=== PATIENT | male | born 1980 | race Caucasian/White ===

== ENCOUNTER 2018-03-11 10:09 | Emergency (ER) | payer MEDICAID ==
[~2018-03-11] VITALS: Ht 175.3 cm; Wt 72.5 kg
[~2018-03-11 10:09] MED LIST: CARB100S PO; CARB200 PO; SERO50TA PO
[2018-03-11 10:25] VITALS: BP 154/77; PULSE 87; RESP 20; TEMP 98.3; O2SAT 97
[2018-03-11] MEDS ORDERED: ONDANSETRON ODT 4 MG TAB PO ONE (11:15)
[2018-03-11] MEDS ORDERED: LORazepam 2 MG/ML VIAL IM PRN ×2 (11:15)
[2018-03-11] MEDS ORDERED: LORazepam 1 MG TAB PO PRN (11:15)
[2018-03-11] MEDS ORDERED: LORazepam 2 MG TAB PO PRN (11:15)
[2018-03-11] MEDS ORDERED: FLUMAZENIL 0.5 MG/5 ML VIAL IV PUSH PRN (11:15)
[2018-03-11] MEDS ORDERED: LORazepam 2 MG/ML VIAL IV PUSH PRN ×2 (11:15)
--- NOTE | 2018-03-11 12:19 | PD ---
HPI Chief Complaint: Medical Clearance Time Seen by Provider: 11:06 Travel History International Travel<30 days: No Contact w/Intl Traveler<30days: No Traveled to known affect area: No History of Present Illness HPI 37-year-old male presents to the emergency department with request for detox from alcohol and cocaine. He said he went to [facility] but they did not have any beds available. He is also reporting suicidal ideations. He says they are consistent. He does not have a plan, but states that he "cannot explain" his thoughts. He says he feels hopeless. Denies homicidal ideations. Denies hallucinations. Reports feeling nauseated and has had decreased appetite. Says he has been drinking alcohol for many years. Says he drinks beer and liquor. Last drink yesterday. Last used cocaine yesterday. Aggravated with alcohol and illicit drug abuse. No known relieving factors. Symptoms are moderate to severe in severity. Duration chronic. Onset unknown. No known allergies. No primary care provider. Denies significant past medical history. Has no other medical complaints. No other modifying factors or associated signs and symptoms. PFSH Past Medical History Medical History: Denies Significant Hx Past Surgical History Surgical History: No Previous Surgery Social History Alcohol Use: Yes Tobacco Use: Yes Substance Use: No Allergies-Medications (Allergen,Severity, Reaction): Coded Allergies: No Known Allergies (Unverified , 03/11/18) Reported Meds & Prescriptions Reported Meds & Active Scripts Active No Active Prescriptions or Reported Medications Review of Systems Except as stated in HPI: all other systems reviewed are Neg Physical Exam Narrative GENERAL: Well-nourished, well-developed patient, in no acute distress SKIN: Warm and dry. HEAD: Atraumatic. Normocephalic. EYES: Pupils equal and round. ENT: Mucosa pink and moist. NECK: Supple. Trachea midline. CARDIOVASCULAR: Regular rate and rhythm. No murmur appreciated. RESPIRATORY: No accessory muscle use. Clear to auscultation. Breath sounds equal bilaterally. GASTROINTESTINAL: Abdomen soft, non-tender, nondistended. Hepatic and splenic margins not palpable. Bowel sounds are active 4 quadrants. MUSCULOSKELETAL: No obvious deformities. No clubbing. No cyanosis. No edema. NEUROLOGICAL: Awake and alert. Oriented 3. No obvious cranial nerve deficits. Motor grossly within normal limits. Normal speech. Moves all extremities. 5/5 strength to all extremities. PSYCHIATRIC: No delusional thought processes. No hallucinations. Data Data Last Documented VS Vital Signs Date Time Temp Pulse Resp B/P (MAP) Pulse Ox O2 Delivery O2 Flow Rate FiO2 03/11/18 10:25 98.3 87 20 154/77 (102) 97 Orders Orders Complete Blood Count With Diff (03/11/18 11:15) Comprehensive Metabolic Panel (03/11/18 11:15) Thyroid Stimulating Hormone (03/11/18 11:15) Psych Screen (03/11/18 11:15) Drug Screen, Random Urine (03/11/18 11:15) Alcohol (Ethanol) (03/11/18 11:15) Salicylates (Aspirin) (03/11/18 11:15) Tylenol (Acetaminophen) (03/11/18 11:15) Ondansetron Odt (Zofran Odt) (03/11/18 11:15) Alcohol Withdrawal Asmt-Ciwa ONCE (03/11/18 11:15) Flumazenil Inj (Romazicon Inj) (03/11/18 11:15) Lorazepam (Ativan) (03/11/18 11:15) Lorazepam Inj (Ativan Inj) (03/11/18 11:15) Lorazepam (Ativan) (03/11/18 11:15) Lorazepam Inj (Ativan Inj) (03/11/18 11:15) Lorazepam Inj (Ativan Inj) (03/11/18 11:15) Lorazepam Inj (Ativan Inj) (03/11/18 11:15) MDM Medical Decision Making Medical Screen Exam Complete: Yes Emergency Medical Condition: Yes Medical Record Reviewed: Yes Differential Diagnosis Suicidal ideation, alcohol abuse, cocaine abuse Narrative Course 37-year-old male presents requesting detox from alcohol and cocaine. He is also reporting suicidal ideations that are consistent. Patient appears and is acting clinically sober at this time. He says he last used alcohol and cocaine yesterday. With his report of suicidal ideation and being clinically sober I will initiate a Thomas act, even though he does not have a plan. When asked the patient if he was a threat to himself he said he feels he is because of his consistent thoughts of wanting to commit suicide and feeling hopeless. Patient placed under a Thomas act. Physical examination and vital signs are essentially unremarkable. Patient has no medical complaints to report. Psych screen has been ordered. If the laboratory results are unremarkable, the patient will be medically cleared for psychiatric evaluation and disposition. Diagnosis Primary Impression: Encounter for psychological evaluation Additional Impressions: Alcohol abuse Cocaine abuse Scripts No Active Prescriptions or Reported Meds Condition: Stable Jyoti Pelaez March 11, 2018 12:19
[2018-03-11 12:41] LABS: AUTOMATED NEUTROPHIL # 2.7 TH/MM3 (1.8-7.7); BASOPHIL % 0.3 % (0.0-2.0); EOSINOPHIL # 0.1 TH/MM3 (0-0.4); EOSINOPHIL % 1.9 % (0.0-4.0); HEMATOCRIT 42.1 % (39.0-51.0); HEMOGLOBIN 14.3 GM/DL (13.0-17.0); LYMPH % 31.8 % (9.0-44.0); LYMPHOCYTE # 1.7 TH/MM3 (1.0-4.8); MEAN CELL VOLUME 94.6 FL (80.0-100.0); MEAN CORPUSCULAR HEMOGLOBIN 32.1 PG (27.0-34.0); MEAN CORPUSCULAR HGB CONC 33.9 % (32.0-36.0); MONO % 15.5 % (0.0-8.0); MONOCYTE # 0.8 TH/MM3 (0-0.9); NEUT % 50.5 % (16.0-70.0); PLATELET COUNT 249 TH/MM3 (150-450); RED BLOOD COUNT 4.45 MIL/MM3 (4.50-5.90); RED CELL DISTRIBUTION WIDTH 13.5 % (11.6-17.2); WHITE BLOOD COUNT 5.4 TH/MM3 (4.0-11.0)
[2018-03-11 12:57] LABS: ALT (GPT) 47 U/L (12-78)
[2018-03-11 13:07] LABS: ALKALINE PHOSPHATASE 72 U/L (45-117); TOTAL BILIRUBIN ADULT 0.3 MG/DL (0.2-1.0); TOTAL PROTEIN 7.1 GM/DL (6.4-8.2)
[2018-03-11 13:09] LABS: ALBUMIN 3.7 GM/DL (3.4-5.0); AST (GOT) 24 U/L (15-37); BICARBONATE 22.7 MEQ/L (21.0-32.0); BLOOD UREA NITROGEN 22 MG/DL (7-18); CALCIUM 8.8 MG/DL (8.5-10.1); CHLORIDE 105 MEQ/L (98-107); CREATININE 0.91 MG/DL (0.60-1.30); GLOMERULAR FILTRATION RATE 94 ML/MIN (>89); GLUCOSE,RANDOM 92 MG/DL (74-106); SODIUM (NA) 139 MEQ/L (136-145)
[2018-03-11 13:16] LABS: ACETAMINOPHEN LESS THAN 2.0 MCG/ML (10.0-30.0)
[2018-03-11 15:01] VITALS: BP 145/63; PULSE 98; RESP 18; O2SAT 99
[2018-03-11 18:30] VITALS: BP 162/93; PULSE 98; RESP 20
[2018-03-11 22:00] VITALS: BP 142/80; PULSE 78; RESP 18; O2SAT 97
[2018-03-12 02:29] VITALS: BP 129/82; PULSE 68; RESP 18; O2SAT 98
[2018-03-12 06:43] VITALS: BP 134/70; PULSE 69; RESP 17; O2SAT 100
--- NOTE | 2018-03-12 10:03 | PD ---
History of Present Illness Chief Complaint: Medical Clearance Time Seen by Provider: 09:40 Travel History International Travel<30 Days: No Contact w/Intl Traveler<30days: No Known affected area: No Legal Status Legal Status: Thomas Act Thomas Act Signed By: ED PHYSICIAN VIRAL History of Present Illness: History of Present Illness HPI 37-year-old, single male with history of cocaine use disorder, alcohol use disorder who presents to the emergency department on a voluntary status with request for detox from alcohol and cocaine. He said he went to [facility] but they did not have any beds available. He was placed under an involuntary status by ED provider after he reported to her that he had suicidal ideation that were consistent, no plan, feeling hopeless. EMR is reviewed. Positive for cocaine undetectable alcohol level. He was evaluated in 2003 after he relapsed, after unknown amount of sobriety from alcohol and crack cocaine while at a sober living facility. Patient was monitored in secure environment over extended amount of time with no suicidality. Patient is seen with sil Navarro. He is alert, oriented, engaging, patient does not present any evidence of unstable mental illness. He does not present any suicidal or homicidal ideation, intent or plan. Patient is requesting detox and wanting [facility] to transport him there via ambulance. States " My buddies told me to come to the hospital and that you guys will get me there. They know how is done, lady". When he is advised that we will not be transporting him there and that he can present himself to for detox on his own he becomes angry with this rfp writer. He is rather entitled. Significant antisocial traits are evident during his evaluation. PFSH Past Medical History Medical History: Denies Significant Hx Past Surgical History Surgical History: No Previous Surgery Psychiatric History Psychiatric History Hx Psychiatric Treatment: Denies any. No previous suicide attempts. History of Inpatient Treatment: No Guns or firearms in home: No Social History Born in [place]. Patient released from incarceration on February 09, 2018 after serving 22 months. Hx Alcohol Use: Yes Hx Tobacco Use: Yes Hx Substance Use: Yes (cocaine) Substance Use Type: Alcohol, Cocaine Hx of Substance Use Treatment: No Family Psychiatric History Negative Allergies-Medications (Allergen,Severity, Reaction): Coded Allergies: No Known Allergies (Unverified , 03/11/18) Reported Meds & Prescriptions Reported Meds & Active Scripts Active No Active Prescriptions or Reported Medications Review of Systems Psychiatric: DENIES: Anxiety, Confusion, Mood changes, Depression, Hallucinations, Agitation, Suicidal Ideation, Homicidal Ideation, Delusions Except as stated in HPI: all other systems reviewed are Neg Mental Status Examination Appearance: Appropriate ([facility]. ) Consciousness: Alert Orientation: x4 Motor Activity: Normal gait Speech: Unremarkable Language: Adequate Fund of Knowledge: Adequate Attention and Concentration: Adequate Memory: Unremarkable Mood: Appropriate Affect: Appropriate Thought Process & Associations: Intact, Logical, Goal directed Thought Content: Appropriate Hallucination Type: None Delusion Type: None Suicidal Ideation: No Suicidal Plan: No Suicidal Intention: No Homicidal Ideation: No Homicidal Plan: No Homicidal Intention: No Insight: Fair Judgment: Adequate MDM Medical Decision Making Medical Record Reviewed: Yes Assessment/Plan History of Present Illness HPI 37-year-old male with history of cocaine use disorder and alcohol use disorder who presents to the emergency department on a voluntary basis with request for detox from alcohol and cocaine. He said he went to [facility] but they did not have any beds available. He reported to ED provider that he was having suicidal ideations as well as feeling hopeless and was placed under an involuntary status. The patient was monitor for extended period of time and presented no evidence of any unstable mental illness, no suicidality, no behavioral dysregulation. He is asking for detox services for his use of cocaine. He demands that at the hospital make arrangements to take him to [facility] or another detox facility. The correctional case records supervisor informs them that he will call [facility] for availability of bed but that it would be up to him to present himself there. He becomes critical of this provider and demanding for transportation to [facility]. The patient does not present criteria to remain under a Thomas act. He is wanting substance abuse treatment including detox. He is future oriented. I have advised him that [facility] does not provide substance abuse treatment and does not provide detox. BA is lifted. Psychiatric clear for discharge. Orders Orders Complete Blood Count With Diff (03/11/18 11:15) Comprehensive Metabolic Panel (03/11/18 11:15) Thyroid Stimulating Hormone (03/11/18 11:15) Psych Screen (03/11/18 11:15) Drug Screen, Random Urine (03/11/18 11:15) Alcohol (Ethanol) (03/11/18 11:15) Salicylates (Aspirin) (03/11/18 11:15) Tylenol (Acetaminophen) (03/11/18 11:15) Ondansetron Odt (Zofran Odt) (03/11/18 11:15) Alcohol Withdrawal Asmt-Ciwa ONCE (03/11/18 11:15) Flumazenil Inj (Romazicon Inj) (03/11/18 11:15) Lorazepam (Ativan) (03/11/18 11:15) Lorazepam Inj (Ativan Inj) (03/11/18 11:15) Lorazepam (Ativan) (03/11/18 11:15) Lorazepam Inj (Ativan Inj) (03/11/18 11:15) Lorazepam Inj (Ativan Inj) (03/11/18 11:15) Lorazepam Inj (Ativan Inj) (03/11/18 11:15) Diet Regular Basic (03/11/18 Dinner) Diet Regular Basic (03/12/18 Breakfast) Results Vital Signs Date Time Temp Pulse Resp B/P (MAP) Pulse Ox O2 Delivery O2 Flow Rate FiO2 03/12/18 06:43 69 17 134/70 (91) 100 Room Air 03/12/18 02:29 68 18 129/82 (98) 98 Room Air 03/11/18 22:00 78 18 142/80 (100) 97 Room Air 03/11/18 18:30 98 20 162/93 (116) Room Air 03/11/18 15:01 98 18 145/63 (90) 99 Room Air 03/11/18 10:25 98.3 87 20 154/77 (102) 97 Laboratory Tests Test 03/11/18 12:30 03/11/18 21:50 White Blood Count 5.4 Red Blood Count 4.45 Hemoglobin 14.3 Hematocrit 42.1 Mean Corpuscular Volume 94.6 Mean Corpuscular Hemoglobin 32.1 Mean Corpuscular Hemoglobin Concent 33.9 Red Cell Distribution Width 13.5 Platelet Count 249 Mean Platelet Volume 8.0 Neutrophils (%) (Auto) 50.5 Lymphocytes (%) (Auto) 31.8 Monocytes (%) (Auto) 15.5 Eosinophils (%) (Auto) 1.9 Basophils (%) (Auto) 0.3 Neutrophils # (Auto) 2.7 Lymphocytes # (Auto) 1.7 Monocytes # (Auto) 0.8 Eosinophils # (Auto) 0.1 Basophils # (Auto) 0.0 CBC Comment DIFF FINAL Differential Comment Blood Urea Nitrogen 22 Creatinine 0.91 Random Glucose 92 Total Protein 7.1 Albumin 3.7 Calcium Level 8.8 Alkaline Phosphatase 72 Aspartate Amino Transf (AST/SGOT) 24 Alanine Aminotransferase (ALT/SGPT) 47 Total Bilirubin 0.3 Sodium Level 139 Potassium Level 4.1 Chloride Level 105 Carbon Dioxide Level 22.7 Anion Gap 11 Estimat Glomerular Filtration Rate 94 Thyroid Stimulating Hormone 3rd Gen 0.737 Salicylates Level LESS THAN 1.7 Acetaminophen Level LESS THAN 2.0 Ethyl Alcohol Level LESS THAN 3 Urine Opiates Screen NEG Urine Barbiturates Screen NEG Urine Amphetamines Screen NEG Urine Benzodiazepines Screen NEG Urine Cocaine Screen POS Urine Cannabinoids Screen NEG Diagnosis Primary Impression: Encounter for psychological evaluation Additional Impressions: Alcohol abuse Cocaine abuse Psychiatrically Cleared: Yes Med/ Other Pt Specific Info: No Meds Exist/No RX given Prescriptions No Active Prescriptions or Reported Meds Disposition: 01 DISCHARGE HOME Condition: Stable Problem Qualifiers Renate Abad Mar 12, 2018 10:03
--- NOTE | 2018-03-12 10:10 | PD ---
Physical Exam Time Seen by Provider: 10:07 MAGDALENE Colunga has evaluated patient, lifted Thomas act and cleared the patient for discharge. Follow-up plan is for the patient to go to [facility] and then to sober living. Data Data Last Documented VS Vital Signs Date Time Temp Pulse Resp B/P (MAP) Pulse Ox O2 Delivery O2 Flow Rate FiO2 03/12/18 06:43 69 17 134/70 (91) 100 Room Air 03/11/18 10:25 98.3 Orders Orders Complete Blood Count With Diff (03/11/18 11:15) Comprehensive Metabolic Panel (03/11/18 11:15) Thyroid Stimulating Hormone (03/11/18 11:15) Psych Screen (03/11/18 11:15) Drug Screen, Random Urine (03/11/18 11:15) Alcohol (Ethanol) (03/11/18 11:15) Salicylates (Aspirin) (03/11/18 11:15) Tylenol (Acetaminophen) (03/11/18 11:15) Ondansetron Odt (Zofran Odt) (03/11/18 11:15) Alcohol Withdrawal Asmt-Ciwa ONCE (03/11/18 11:15) Flumazenil Inj (Romazicon Inj) (03/11/18 11:15) Lorazepam (Ativan) (03/11/18 11:15) Lorazepam Inj (Ativan Inj) (03/11/18 11:15) Lorazepam (Ativan) (03/11/18 11:15) Lorazepam Inj (Ativan Inj) (03/11/18 11:15) Lorazepam Inj (Ativan Inj) (03/11/18 11:15) Lorazepam Inj (Ativan Inj) (03/11/18 11:15) Diet Regular Basic (03/11/18 Dinner) Diet Regular Basic (03/12/18 Breakfast) Labs Laboratory Tests Test 03/11/18 12:30 03/11/18 21:50 White Blood Count 5.4 TH/MM3 Red Blood Count 4.45 MIL/MM3 Hemoglobin 14.3 GM/DL Hematocrit 42.1 % Mean Corpuscular Volume 94.6 FL Mean Corpuscular Hemoglobin 32.1 PG Mean Corpuscular Hemoglobin Concent 33.9 % Red Cell Distribution Width 13.5 % Platelet Count 249 TH/MM3 Mean Platelet Volume 8.0 FL Neutrophils (%) (Auto) 50.5 % Lymphocytes (%) (Auto) 31.8 % Monocytes (%) (Auto) 15.5 % Eosinophils (%) (Auto) 1.9 % Basophils (%) (Auto) 0.3 % Neutrophils # (Auto) 2.7 TH/MM3 Lymphocytes # (Auto) 1.7 TH/MM3 Monocytes # (Auto) 0.8 TH/MM3 Eosinophils # (Auto) 0.1 TH/MM3 Basophils # (Auto) 0.0 TH/MM3 CBC Comment DIFF FINAL Differential Comment Blood Urea Nitrogen 22 MG/DL Creatinine 0.91 MG/DL Random Glucose 92 MG/DL Total Protein 7.1 GM/DL Albumin 3.7 GM/DL Calcium Level 8.8 MG/DL Alkaline Phosphatase 72 U/L Aspartate Amino Transf (AST/SGOT) 24 U/L Alanine Aminotransferase (ALT/SGPT) 47 U/L Total Bilirubin 0.3 MG/DL Sodium Level 139 MEQ/L Potassium Level 4.1 MEQ/L Chloride Level 105 MEQ/L Carbon Dioxide Level 22.7 MEQ/L Anion Gap 11 MEQ/L Estimat Glomerular Filtration Rate 94 ML/MIN Thyroid Stimulating Hormone 3rd Gen 0.737 uIU/ML Salicylates Level LESS THAN 1.7 MG/DL Acetaminophen Level LESS THAN 2.0 MCG/ML Ethyl Alcohol Level LESS THAN 3 MG/DL Urine Opiates Screen NEG Urine Barbiturates Screen NEG Urine Amphetamines Screen NEG Urine Benzodiazepines Screen NEG Urine Cocaine Screen POS Urine Cannabinoids Screen NEG MDM Supervised Visit with WALDO: No Narrative Course MAGDALENE Dewitt has evaluated patient, lifted Thomas act and cleared the patient for discharge. Follow-up plan is for the patient to go to [facility] and then to sober living. Patient contracts safety. Denies suicidal or homicidal ideations. Patient will be provided community resource packet to [facility] for follow-up. Has friends and family for support. Patient was medically cleared by alternate provider prior to psych screening. Patient has been evaluated by psychiatry and and is now cleared for discharge. Diagnosis Primary Impression: Alcohol abuse Additional Impression: Cocaine abuse Referrals: [facility] (Out patient) [facility] Primary Care Physician Psychiatrist Jonna [facility] Behavioral Patient Instructions: Abuse of Alcohol (ED), Alcohol Dependence (ED), Alcohol Intoxication (ED), Cocaine Abuse (ED), General Instructions Additional Instruction: Contract safety to your self and others Stop drinking alcohol or drink alcohol in moderation Follow-up in the community with community support, such as with Alcoholics Anonymous Stop using cocaine Follow-up with psychiatry Follow-up with primary care provider Follow-up with Max Mendoza/[facility] Return to the emergency department immediately with worsening of symptoms Med/Other Pt SpecificInfo: No Change to Meds, No Meds Exist/No RX given Scripts No Active Prescriptions or Reported Meds Disposition: 01 DISCHARGE HOME Condition: Stable Jyoti Pelaez Mar 12, 2018 10:10
== END 2018-03-12 10:27 | disposition home or self-care (01) ==
LOC: NEPD 10:09 → NEPJ 03-12 10:27
DX: F10.10 Alcohol abuse, uncomplicated (principal); F14.10 Cocaine abuse, uncomplicated; Y90.0 Blood alcohol level of less than 20 mg/100 ml; Z72.0 Tobacco use
CPT/HCPCS: 80053; 80307; 84443; 85025; 99283